=== PATIENT | female | born 1955 ===

== ENCOUNTER 2018-08-16 21:38 | Emergency (ER) | payer SELFPAY ==
[2018-08-16] MEDS ORDERED: Sodium Chloride 0.9% 1,000 ML IV STA (22:33)
--- NOTE | 2018-08-16 22:47 | ED PDOC ---
HPI:Nausea, Vomiting, Diarrhea Time Seen by Provider: 08/16/18 21:49 Chief Complaint (Nursing): GI Problem Chief Complaint (Provider): GI Problem History Per: Patient, [employer] (history was obtained via [employer], ID#[id number]) Onset/Duration Of Symptoms: Days (x1) Current Symptoms Are (Timing): Still Present Context: Travel (from [facility]) Additional Complaint(s): Patient is a 62 y/o female with no significant PMHx who was brought into the ED via BLS for vomiting, frequent stool, and generalized weakness for the past day. Patient admits to fever, chills, and whole body pain. Patient states she is visiting from [facility] and that her symptoms began after eating a piece of salmon. of note, patient history was obtained via [employer], ID#[id number]. PCP: None Provided Past Medical History Reviewed: Historical Data, Nursing Documentation, Vital Signs Vital Signs: Last Vital Signs Temp 100.5 F H 08/16/18 22:43 Pulse 91 H 08/16/18 22:41 Resp 18 08/16/18 22:41 BP 161/79 H 08/16/18 22:41 Pulse Ox 97 08/16/18 22:41 - Medical History PMH: No Chronic Diseases - Surgical History Surgical History: No Surg Hx - Family History Family History: States: No Known Family Hx - Home Medications Home Medications: Ambulatory Orders Medication Instructions Recorded Ciprofloxacin HCl [Cipro] 500 mg PO BID #20 tab 08/17/18 Metronidazole [Flagyl] 500 mg PO TID #30 tablet 08/17/18 - Allergies Allergies/Adverse Reactions: Allergies Allergy/AdvReac Type Severity Reaction Status Date / Time No Known Allergies Allergy Verified 08/16/18 21:40 Review of Systems ROS Statement: Except As Marked, All Systems Reviewed And Found Negative Constitutional: Positive for: Fever, Chills, Weakness (generalized), Other (Whole Body Pain) Gastrointestinal: Positive for: Vomiting. Negative for: Diarrhea (frequent stool) Physical Exam - Reviewed Nursing Documentation Reviewed: Yes Vital Signs Reviewed: Yes - Physical Exam Appears: Negative for: Well (Febrile) Head Exam: Positive for: ATRAUMATIC, NORMAL INSPECTION, NORMOCEPHALIC Skin: Positive for: Normal Color Eye Exam: Positive for: EOMI, Normal appearance, PERRL ENT: Positive for: Normal ENT Inspection Neck: Positive for: Normal Cardiovascular/Chest: Positive for: Regular Rate, Rhythm Respiratory: Positive for: Normal Breath Sounds Gastrointestinal/Abdominal: Positive for: Normal Exam Extremity: Positive for: Normal ROM (Upper/Lower) Neurologic/Psych: Positive for: Alert, Oriented - Laboratory Results Result Diagrams: 08/16/18 22:35 08/16/18 22:35 - ECG O2 Sat by Pulse Oximetry: 97 (RA) Pulse Ox Interpretation: Normal Medical Decision Making Medical Decision Making: Time: 2224 Plan: CMP Lipase CBC IV Fluids Tylenol 975 mg PO Influenza A B 01:50 CXR reveals no infiltrate. However, patient has an elevated WBC count with a shift and elevated glucose levels. Insulin ordered. Negative for influenza. CT Abd Pelvis 03:10 COMMENTS: Diffuse thickening of the rectosigmoid colon. Diffuse thickening of the transverse colon. The liver is of uniform attenuation without mass or defect. There is no intra or extrahepatic biliary ductal dilatation. The spleen is normal. The gallbladder is within normal limits. The pancreas is of normal contour and attenuation characteristics. There is no evidence of adrenal mass. Both kidneys demonstrate prompt and equal nephrograms. The kidneys are normal in size, shape and configuration. There is no evidence of renal or ureteral mass. No renal or ureteral calculi are identified. There is no hydroureter or hydronephrosis. No evidence for appendicitis. No evidence for small or large bowel obstruction. There is no evidence of abdominal ascites or lymphadenopathy. There is no evidence of intrinsic or extrinsic bladder mass. There is no pelvic ascites or lymphadenopathy. Images of the lung bases show no evidence of pleural or parenchymal mass. There are no pleural effusions. The bony structures are free of lytic or blastic lesions. IMPRESSION: Diffuse thickening of the transverse and sigmoid colon. Underdistention, spasm versus mild colitis. 03:44 Patient is hemodynamically stable with improved vitals. She is stable for discharge. Diagnosis is colitis. Scribe Attestation: Documented by Caio Knott, acting as a scribe for provider Mansi Boland MD. All medical record entries made by the Scribe were at my direction and personally dictated by me. I have reviewed the chart and agree that the record accurately reflects my personal performance of the history, physical exam, medical decision making, and the department course for this patient. I have also personally directed, reviewed, and agree with the discharge instructions and disposition. Disposition - Clinical Impression Clinical Impression: Colitis, Diabetes mellitus, new onset - Patient ED Disposition Is Patient to be Admitted: No Counseled Patient/Family Regarding: Studies Performed, Diagnosis, Need For Followup - Disposition [facility]: [facility]Outside[facility] Disposition: Routine/Home Disposition Time: 04:34 Condition: IMPROVED Additional Instructions: please follow up in the clinic in 1-2 days for reevaluation return to the ED with any worsening or concerning symptoms Prescriptions: Ciprofloxacin HCl [Cipro] 500 mg PO BID #20 tab Metronidazole [Flagyl] 500 mg PO TID #30 tablet Instructions: Diabetes Diet , Diabetes and Diet, Diabetes in Older Adults, Colitis (DC) Forms: [employer] (South African), [employer] (Lao) Print Language: SWEDISH
[2018-08-16 22:56] LABS: BASO # 0.1 K/uL (0.0-0.2); BASO % 0.5 % (0.0-2.0); EOS # 0.1 K/uL (0.0-0.7); EOS % 0.5 % (0.0-4.0); HEMOGLOBIN 14.6 g/dL (12.0-16.0); LYMPH # 1.2 K/uL (1.0-4.3); LYMPH % 8.1 % (20.0-40.0); MEAN CORPUSCULAR HEMOGLOBIN 28.5 pg (27.0-31.0); MEAN CORPUSCULAR HGB CONC 33.5 g/dL (33.0-37.0); MEAN PLATELET VOLUME 9.2 fl (7.2-11.7); MONO # 0.5 K/uL (0.0-0.8); MONO % 3.7 % (0.0-10.0); NEUT # 13.1 K/uL (1.8-7.0); NEUT % 87.2 % (50.0-75.0); NRBC % 0.1 % (0.0-0.0); PLATELET COUNT 222 K/uL (130-400); RBC 5.13 Mil/uL (3.80-5.20); RED CELL DISTRIBUTION WIDTH 13.1 % (11.5-14.5)
[2018-08-16 23:05] LABS: ALB/GLOB RATIO 1.1 (1.0-2.1); ALBUMIN 4.4 g/dL (3.5-5.0); ALT/SGPT 30 U/L (9-52); AST/SGOT 22 U/L (14-36); BLOOD UREA NITROGEN 16 mg/dl (7-17); CALCIUM 9.7 mg/dL (8.4-10.2); GFR NON-AFRICAN AMERICAN 57; LIPASE 112 U/L (23-300)
[2018-08-16 23:35] LABS: BANDS 3 % (0-2); EOSINOPHIL 1 % (0-7); LYMPHOCYTE 9 % (20-50); MONOCYTE 4 % (0-10); NEUTROPHIL 83 % (42-75); PLATELET ESTIMATE NORMAL (NORMAL); TOTAL CELLS COUNTED 100
[2018-08-17 00:02] LABS: SQUAMOUS EPITHIAL 5 /hpf (0-5); URINE BILIRUBIN NEGATIVE (NEGATIVE); URINE BLOOD NEGATIVE (NEGATIVE); URINE CLARITY SLIGHTY-CLOUDY (Clear); URINE COLOR YELLOW (YELLOW); URINE GLUCOSE (UA) >=500 mg/dL (NEGATIVE); URINE LEUKOCYTE ESTERASE NEG Leu/uL (Negative); URINE PROTEIN 30 mg/dL (NEGATIVE); URINE UROBILINOGEN 0.2-1.0 mg/dL (0.2-1.0)
[2018-08-17] MEDS ORDERED: Iohexol 240 (50 ml) PO ONE (00:45)
[2018-08-17] MEDS ORDERED: Iohexol 240 (50 ml) ONE (00:58)
[2018-08-17] MEDS ORDERED: Insulin Regular 100 units/ml SC STA (01:49)
[2018-08-17] MEDS ORDERED: Insulin Regular 100 units/ml ONE (01:57)
[2018-08-17] MEDS ORDERED: Iohexol 300 100 ML IJ ONE (02:18)
[2018-08-17] MEDS ORDERED: Sodium Chloride 0.9% 50 ML IV ONE (02:18)
[2018-08-17 04:07] VITALS: BP 130/75; PULSE 68; RESP 16; TEMP 98.1
[2018-08-17 04:35] VITALS: O2SAT 97
--- NOTE | 2018-08-17 09:11 | RAD ---
Date of service: 08/16/2018 HISTORY: fever COMPARISON: No prior. FINDINGS: LUNGS: No active pulmonary disease. PLEURA: No significant pleural effusion identified, no pneumothorax apparent. CARDIOVASCULAR: There is presence of aortic atherosclerotic calcification on x-ray. Normal cardiac size. No pulmonary vascular congestion. OSSEOUS STRUCTURES: Thoracic spondylosis VISUALIZED UPPER ABDOMEN: Normal. OTHER FINDINGS: None. IMPRESSION: No pulmonary infiltrate. No acute cardiopulmonary pathology appreciated.
--- NOTE | 2018-08-17 11:47 | CT ---
Date of service: 08/17/2018 PROCEDURE: CT Abdomen and Pelvis with contrast HISTORY: Abd pain COMPARISON: None. TECHNIQUE: Contrast dose: 95 mL Omnipaque 300 Radiation dose: Total exam DLP = 807.13 mGy-cm. This CT exam was performed using one or more of the following dose reduction techniques: Automated exposure control, adjustment of the mA and/or kV according to patient size, and/or use of iterative reconstruction technique. FINDINGS: LOWER THORAX: On series 5, image 3 there is a perhaps 2 mm right middle lobe peripheral nodularity which appears slightly more prominent than typically seen for the regional vessels coursing this area of this could still be present. Given its size in a low risk patient no further workup of it is believed necessary. Minimal trace discoid like atelectasis and/or trace linear scarring at both bases is noted. LIVER: Diffuse fatty infiltration the liver noted. No gross lesion or ductal dilatation. GALLBLADDER AND BILE DUCTS: Unremarkable. PANCREAS: Unremarkable. No gross lesion or ductal dilatation. SPLEEN: Unremarkable. ADRENALS: Unremarkable. No mass. KIDNEYS AND URETERS: Unremarkable. No hydronephrosis. No solid mass. VASCULATURE: Unremarkable. No aortic aneurysm. No aortic atherosclerotic calcification or mural plaque present. BOWEL: No bowel obstruction. In the rectosigmoid which does appear redundant and not distended there is a segment of circumferential mild thickened wall suggested series 3, image 145. However this segment is also not particularly distended which would optimize its assessment. Its clinical significance, if any is unclear. No significant diverticulitis. The right paracentral transverse colon which is static is also not particularly distended assessment of its wall is also indeterminate here. No associated proximal obstructive dilatation noted. No pericolonic inflammatory changes noted. In the lower abdomen below the L5-S1 level there is midline ventral small mostly fat containing hernia. A knuckle of small bowel also appears to be protruding into it but only minimally and not completely. No associated bowel obstruction or compromise here is bili present. APPENDIX: Normal appendix. PERITONEUM: Unremarkable. No free fluid. No free air. LYMPH NODES: Unremarkable. No enlarged lymph nodes. BLADDER: Bladder is distended but otherwise unremarkable. REPRODUCTIVE: No adnexal masses noted. Uterus is not well visualized. Correlate clinically this could be surgically removed and/or atrophic in this inferred postmenopausal patient. BONES: No acute fracture. Lumbar spondylosis incidentally noted. OTHER FINDINGS: None. IMPRESSION: Segments of minimal colonic mural thickening most conspicuous in the redundant rectosigmoid colon-the clinical significance, if any-of this is unclear given the slightly less distended state. A mild colitis here, versus underdistention and/or spasm are some considerations. Under distension is favored. No eccentric mural thickening or masslike thickening noted. Findings are less impressive in the transverse colon and here under distension is favored. Mild hepatic steatosis. This was not the initially mention on the preliminary [place] rad report. Neither was the minimal nonobstructing lower midline ventral mostly fatty containing hernia mentioned.
== END 2018-08-17 04:11 | disposition home or self-care (01) ==
LOC: H.ER 21:38
DX: K52.9 Noninfective gastroenteritis and colitis, unspecified (principal); E11.9 Type 2 diabetes mellitus without complications
CPT/HCPCS: 71045; 74177; 80053; 81003; 82948; 83690; 85025; 87040; 87086; 87804; 96360; 96372; 99285; J7030; Q9966; Q9967